=== PATIENT | male | born 1950 | race Caucasian/White ===

== ENCOUNTER → 2016-08-31 | Outpatient (CLI) | payer OTHER ==
--- NOTE | ~2016-08-31 | EXE ---
[facility] [place] [address] STRESS ECHOCARDIOGRAM Name: BRITT JAMES Room #: REG [facility]ichardGaylaRichard#: [id number] Admission: 08/31/16 Attend Phys: Lamine Arguello Discharge: Date of : 50 Date of Service: 08/31/16 1651 Report #: [id number] THIS REPORT FOR: //name// APPROVED REPORT Exam: Stress Echocardiogram Indication: Abnormal EKG. Pre-Op Patient Location: Out-Patient Stress Nurse: Carla Christensen RN Status: routine HR: 82 bpm Rhythm: NSR Medical History Allergies: No known drug allergies Cardiac Risk Factors: FHX of CAD Procedure The patient underwent an Exercise Stress Test using the Juan F Protocol. Blood pressure, heart rate, and EKG were monitored. An Echocardiogram was performed by analytical laboratory technician in four stages in quad fashion. At peak stress, four selected images were obtained and placed side by side with resting images for comparison. Testing Details HR Resting HR: 82 bpm Max Heart Rate (APMHR): 155 bpm Max HR Achieved: 171 bpm Target HR (85% APMHR): 131 bpm % of APMHR: 110 Recovery HR: 106 bpm HR response to stress: Normal HR response to stress BP Resting BP: 149/83 mmHg Max BP: 160/70 mmHg Recovery BP: 142/78 mmHg ECG Resting ECG: Sinus Rhythm, nonspecific ST-T abnormalities Stress ECG: Sinus Rhythm, nonspecific ST-T abnormalities ST Change: Non-ischemic Clinical [facility] [address] [place] [address] STRESS ECHOCARDIOGRAM Name: JACBOBRITT Simeon Room #: REG [facility]#: [id number] Admission: 08/31/16 Attend Phys: Lamine Arguello Discharge: Date of : 50 Date of Service: 08/31/16 165 Report #: [id number] Reason for Termination: Target heart rate achieved. Dyspnea Exercise duration: 9mins 3secs min Exercise capacity: 10.4 METs Pre-Stress Echo The resting Echocardiogram showed normal left ventricular contractility with an estimated Ejection Fraction of about 55-60%. Trivial AI, Mild TR, Mild MR Post-Stress Echo The stress Echocardiogram showed normal left ventricular contractility with an estimated Ejection Fraction of about >70%. Conclusion Clinical Response: Non-ischemic Exercise Capacity: Average Stress ECG Response: Non-ischemic Stress Echo Images: Non-ischemic Other Information Study Quality: Good <ELECTRONICALLY SIGNED> By: Jaime Hardwick MD 08/31/161650 50 50 Jaime Hardwick MD /INF
== END ==
LOC: CV 14:08
DX: R06.00 Dyspnea, unspecified (principal)